=== PATIENT | female | born 1975 | race African-American/Black ===

== ENCOUNTER 2024-02-15 04:11 | Emergency (ER) | payer OTHER ==
[2024-02-15 04:17] VITALS: BMI 25.1
[2024-02-15] MEDS ORDERED: PSEUDOEPHEDRINE HCL 60 MG TABLET ONE (04:46)
[2024-02-15] MEDS ORDERED: ACETAMINOPHEN 325 MG TABLET (FP) ONE (04:47)
[2024-02-15] MEDS ORDERED: DEXAMETHASONE 4 MG TABLET (FP) ONE (04:47)
[2024-02-15] MEDS: DEXAMETHASONE 4 MG TABLET (FP) PO ONE (04:48)
[2024-02-15] MEDS: PSEUDOEPHEDRINE HCL 30 MG TABLET PO ONE (04:48)
[2024-02-15] MEDS: ACETAMINOPHEN 500 MG TABLET (FP) PO ONE (04:48)
[2024-02-15 06:47] VITALS: BP 119/68; PULSE 71; RESP 18; TEMP 97.8
[2024-02-15 06:49] LABS: EPI CELLS 5 /uL (0-25.1); HYALINE CASTS 0 /uL (0-3.1); URINE APPEARANCE CLEAR; URINE BACTERIA 45 /uL (0-1359); URINE BILIRUBIN NEGATIVE (NEGATIVE); URINE COLOR YELLOW; URINE GLUCOSE (UA) NEGATIVE (NEGATIVE); URINE KETONE NEGATIVE (NEGATIVE); URINE LEUK ESTERASE TRACE (NEGATIVE); URINE NITRITE NEGATIVE (NEGATIVE); URINE PROTEIN NEGATIVE (NEGATIVE); URINE RBC 5 /uL (0-23.9); URINE UROBILINOGEN 0.2 mg/dL (0.2-1.0); URINE WBC 9 /uL (0-25.8)
== END 2024-02-15 07:06 | disposition home or self-care (01) ==
LOC: JER 04:11
DX: R05.9 Cough, unspecified (principal); R09.81 Nasal congestion; R35.89 Other polyuria; J06.9 Acute upper respiratory infection, unspecified; Z20.822 Contact with and (suspected) exposure to COVID-19
CPT/HCPCS: 0241U-QW; 71046-TC-FY; 81003; 87086; 99284-25